=== PATIENT | male | born 1970 | race Caucasian/White ===

== ENCOUNTER 2016-03-30 21:31 | Emergency (ER) | payer SELFPAY ==
[2016-03-30 21:57] VITALS: BP 128/81
--- NOTE | 2016-03-30 22:08 | UC ---
Dental HPI - HPI Summary HPI Summary: pt c/o intermittent dental pain right upper jaw/tooth. Was seen by PCP on and given ibuprofen and amoxicillin. Pt states that pain worsened today at ~ 1900. He states that the tooth pain has improved at time of exam - History of Current Complaint Stated Complaint: DENTAL Time Seen by Provider: 03/30/16 21:34 Hx Obtained From: Patient Onset/Duration: Sudden Onset, Lasting Days Severity: Mild Aggravating: Chewing - Allergies/Home Medications Allergies/Adverse Reactions: Allergies Allergy/AdvReac Type Severity Reaction Status Date / Time No Known Allergies Allergy Verified 03/30/16 21:48 Home Medications: Home Medications Amoxicillin CAP* 1,000 mg PO BID 03/30/16 [History Confirmed 03/30/16] Azelastine 0.15% NASAL(NF) [Astepro 0.15% NASAL (NF)] 1 spray NASAL DAILY [History Confirmed 03/30/16] Ibuprofen TAB* [Motrin TAB* 800 MG] 800 mg PO Q6H PRN 03/30/16 [History Confirmed 03/30/16] PMH/Surg Hx/FS Hx/Imm Hx Previously Healthy: Yes - Surgical History Surgical History: None - Family History Known Family History: Positive: Cardiac Disease - Social History Alcohol Use: None Substance Use Type: None Smoking Status (MU): Never Smoked Tobacco Review of Systems Constitutional: Negative Skin: Negative Eyes: Negative ENT: Other - dental pain Respiratory: Negative Cardiovascular: Negative Gastrointestinal: Negative Genitourinary: Negative Motor: Negative Neurovascular: Negative Musculoskeletal: Negative Neurological: Negative Psychological: Negative All Other Systems Reviewed And Are Negative: Yes Physical Exam Triage Information Reviewed: Yes Appearance: Well-Appearing Vital Signs: Initial Vital Signs Temp 99.0 F 03/30/16 21:51 Pulse 84 03/30/16 21:51 Resp 16 03/30/16 21:51 BP 128/81 03/30/16 21:51 Pulse Ox 98 03/30/16 21:51 Vital Signs Reviewed: Yes ENT Exam: Normal Dental Exam: Other Dental: Positive: Dental Fracture @ - right lower molar Neck exam: Normal Respiratory Exam: Normal Cardiovascular Exam: Normal Musculoskeletal Exam: Normal Neurological Exam: Normal Psychological Exam: Normal Skin Exam: Normal Dental Complaint Course/Dx - Differential Dx/Diagnosis Differential Diagnosis/Dx: Dental Abscess, Fractured Tooth Provider Diagnoses: dental abscess. poor dentition Discharge - Discharge Plan Condition: Stable Disposition: HOME Prescriptions: predniSONE TAB* [Deltasone TAB*] 30 mg PO DAILY #9 tab Patient Education Materials: Dental Abscess (ED) Additional Instructions: Please follow up with your dentist as soon as possible
== END 2016-03-30 22:19 | disposition home or self-care (01) ==
LOC: UCCORT 21:31
DX: K04.7 Periapical abscess without sinus (principal)
CPT/HCPCS: 99202; G0463